=== PATIENT | female | born 1975 | race Hispanic/Latino ===

== ENCOUNTER 2021-12-26 17:01 | Emergency (ER) | payer MEDICAID, OTHER ==
[~2021-12-26] VITALS: Ht 157.5 cm; Wt 78.0 kg
[2021-12-26 17:02] VITALS: BP 110/65
== END 2021-12-26 18:00 | disposition home or self-care (01) ==
LOC: EDH 17:01
DX: Z46.6 Encounter for fitting and adjustment of urinary device (principal); F31.9 Bipolar disorder, unspecified; F41.9 Anxiety disorder, unspecified; Z88.1 Allergy status to other antibiotic agents; Z88.5 Allergy status to narcotic agent; Z88.8 Allergy status to other drugs, medicaments and biological substances
CPT/HCPCS: 99281